=== PATIENT | male | born 1955 | race Caucasian/White ===

== ENCOUNTER 2018-10-08 14:53 | Emergency (ER) | payer OTHER ==
[~2018-10-08] VITALS: Ht 193 cm; Wt 115.7 kg
[2018-10-08] MEDS ORDERED: METFORMIN HCL500 M1 ORAL (15:04)
[2018-10-08] MEDS ORDERED: DICLOFENAC SODI75 MG ORAL (15:04)
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
[2018-10-08 15:15] VITALS: BP 154/89
[2018-10-08] MEDS ORDERED: Ketorolac 60mg Inj IM ONE (15:30)
[2018-10-08] MEDS ORDERED: Dexamethasone 4mg/ml vial IM ONE (15:30)
[2018-10-08] MEDS ORDERED: ROBAXIN-750750 MG PO (15:34)
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
--- NOTE | 2018-10-08 15:36 | NUR ---
ED Nurse Note: PT TAKEN TO CT.
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
[2018-10-08 17:19] VITALS: BP 158/91
--- NOTE | 2018-10-08 17:19 | NUR ---
ER DISCHARGE NOTE: Patient is cleared to be discharged per ERMD, pt is aox4, on room air, with stable vital signs. pt was given dc and prescription instructions, pt was able to verbalize understanding, pt id band removed without complications. pt is able to ambulate with steady gait. pt took all belongings.
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
== END 2018-10-08 17:19 | disposition home or self-care (01) ==
LOC: EMR 15:23
DX: S06.0X0A Concussion without loss of consciousness, initial encounter (principal); V29.9XXA Motorcycle rider (driver) (passenger) injured in unspecified traffic accident, initial encounter; Y92.9 Unspecified place or not applicable
CPT/HCPCS: 70450; 72020; 96372; 99284; J1100